=== PATIENT | male | born 1930 | race Caucasian/White ===

== ENCOUNTER 2020-08-21 07:13 | Day surgery (SDC) | payer MEDICARE, BC ==
[2020-08-20 14:36] VITALS: BMI 24.8
[~2020-08-21 07:13] MED LIST: EPINEPHrine 0.3 MG in Ophthalmic Irrigation Solution 500 ML IRR SCH; Fentanyl 100 MCG/2 ML VIAL ONE; Midazolam HCl 2 mg/2 ml Vial ONE
[2020-08-21] MEDS ORDERED: Phenylephrine 2.5% Ophth Soln 5 ML BOT ONE (08:00)
[2020-08-21] MEDS ORDERED: Cyclopentolate 1% Opth Drop 2 ML BOT ONE (08:00)
[2020-08-21] MEDS ORDERED: Famotidine/PF 20 mg/2ml Vial ONE (08:45)
[2020-08-21] MEDS ORDERED: Lidocaine 4% PF 5 ML AMP ONE (08:54)
[2020-08-21] MEDS ORDERED: PHENYLEPHRINE-NS 100 MCG/ML 10 ML SYRINGE ONE (08:54)
[2020-08-21] MEDS ORDERED: CEFAZOLIN 1 GM VIAL ONE (08:54)
[2020-08-21] MEDS ORDERED: Metoclopramide HCl 10 MG/2 ML VIAL ONE (08:54)
[2020-08-21] MEDS ORDERED: PROPOFOL 200 MG/20 ML VIAL ONE (08:54)
[2020-08-21] MEDS ORDERED: Maxitrol 0.1% Opth Oint 3.5 GM TUBE ONE (08:54)
[2020-08-21] MEDS ORDERED: Bupivacaine PF 0.75% SDV 10 ML ONE (08:54)
[2020-08-21] MEDS ORDERED: Lidocaine 1% PF 5 ML VIAL ONE ×2 (08:54)
[2020-08-21] MEDS ORDERED: Triamcinolone 40 MG/ML VIAL ONE (08:54)
== END 2020-08-21 12:05 | disposition home or self-care (01) ==
LOC: SDC 07:13
PROVIDERS: ATTEND Ophthalmology Retina Specialist
PROC: 08133J4 Bypass Left Anterior Chamber to Sclera with Synthetic Substitute, Percutaneous Approach (ICD-10-PCS; principal; 2020-08-21)
PROC: 08T53ZZ Resection of Left Vitreous, Percutaneous Approach (ICD-10-PCS; 2020-08-21)
DX: H40.2223 Chronic angle-closure glaucoma, left eye, severe stage (principal); Z79.82 Long term (current) use of aspirin; Z79.899 Other long term (current) drug therapy; Z88.2 Allergy status to sulfonamides; Z88.8 Allergy status to other drugs, medicaments and biological substances; Z95.0 Presence of cardiac pacemaker
CPT/HCPCS: 66180; 67036; L8612; J0171; J0690; J2250; J2704; J2765; J3010; J3301; J3490; S0028